=== PATIENT | female | born 1970 | race Caucasian/White ===

== ENCOUNTER 2018-01-23 21:15 | Emergency (ER) | payer SELFPAY ==
[2018-01-23] MEDS ORDERED: Diphtheria,Pertussis(Acell),Tetanus Vaccine 0.5 ML Syringe IM ONE (21:33)
--- NOTE | 2018-01-23 21:33 | EDM.PDOC ---
ED HPI GENERAL MEDICAL PROBLEM - General Chief Complaint: General Stated Complaint: PT HAS OBJECT IN RT FOOT Time Seen by Provider: 01/23/18 21:30 Source of Information: Reports: Patient History Limitations: Reports: No Limitations - History of Present Illness INITIAL COMMENTS - FREE TEXT/NARRATIVE: HISTORY AND PHYSICAL: []47-year-old female presents with a foreign object stuck in her foot History of Present Illness: []Patient has her sock calf waist down there is a toothpick into her foot She does not recall when her last tetanus vaccine was given Review of Systems: As per history of present illness and below otherwise all systems reviewed and negative. Past medical history: As per history of present illness and as reviewed below otherwise noncontributory. Surgical history: As per history of present illness and as reviewed below otherwise noncontributory. Social history: No reported history of drug or alcohol abuse. Family history: As per history of present illness and as reviewed below otherwise noncontributory. Physical exam: Alert female answering questions appropriately in full sentences without any shortness of breath she is nontoxic in appearance HEENT: Atraumatic, normocehpalic, pupils reactive, negative for conjunctival pallor or scleral icterus, mucous membranes moist, throat clear, neck supple, nontender, trachea midline. Lungs: Clear to auscultation, breath sounds equal bilaterally, chest non tender. Heart: S1S2, regular, negative for clicks, rubs, or JVD. Abdomen: Soft, nondistended, nontender. Negative for masses or hepatossplenmegaly. Negative for costovertebral tenderness. Pelvis: Stable nontender. Genitourinary: Deferred. Rectal: Deferred Extremities: Toothpick is through her sock and into the sole of her, negative for cords or calf pain. Neurovascular unremarkable. Neuro: Awake, alert, oriented. Cranial nerves II through XII unremarkable. Cerebellum unremarkable. Motor and sensory unremarkable throughout. Exam nonfocal. Toothpick was removed. Proximally 1 inch was into her foot, toothpick intact when removed. Diagnostics: [] Therapeutics: []Adacel Impression: []Puncture wound right foot Plan: []Discharged home Follow up with your primary care provider in 3 days Keflex 500 mg 3 times a day 5 days Hot soapy soaks Epson salt water twice daily Return to the emergency department as directed and discussed Definitive disposition and diagnosis as appropriate pending reevaluation and review of above. Onset: Today, Sudden Duration: Minutes: (20) Location: Reports: Lower Extremity, Right Quality: Reports: Stabbing Severity: Moderate Improves with: Reports: None Worsens with: Reports: None Associated Symptoms: Reports: No Other Symptoms - Related Data Allergies Allergy/AdvReac Type Severity Reaction Status Date / Time No Known Allergies Allergy Verified 01/23/18 21:32 Home Meds: Home Meds Cephalexin [Keflex] 500 mg PO TID #15 capsule 01/23/18 [Rx] ED ROS GENERAL - Review of Systems Review Of Systems: ROS reveals no pertinent complaints other than HPI. ED EXAM, GENERAL - Physical Exam Exam: See Below (see dictation) Course - Vital Signs Last Recorded V/S: Last Vital Signs Temp 36.6 C 01/23/18 21:27 Pulse 99 01/23/18 21:27 Resp 20 01/23/18 21:27 BP 169/90 H 01/23/18 21:27 Pulse Ox 98 01/23/18 21:27 - Orders/Labs/Meds Orders: Active Orders 24 hr Category Date Time Status Vaccines to be Administered [RC] PER UNIT ROUTINE Care 01/23/18 21:33 Ordered Diphth,Pertuss(Acell),Tet Vac [Adacel] Med 01/23/18 21:33 Once 0.5 ml IM .ONCE ONE Departure - Departure Time of Disposition: 21:34 Disposition: Home, Self-Care 01 Condition: Good Clinical Impression: Puncture wound of right foot Qualifiers: Encounter type: initial encounter Qualified Code(s): S91.331A - Puncture wound without foreign body, right foot, initial encounter - Discharge Information *PRESCRIPTION DRUG MONITORING PROGRAM REVIEWED*: Not Applicable *COPY OF PRESCRIPTION DRUG MONITORING REPORT IN PATIENT [place]: Not Applicable Prescriptions: Cephalexin [Keflex] 500 mg PO TID #15 capsule Instructions: Puncture Wound, [place] Forms: ED Department Discharge Additional Instructions: The following information is given to patients seen in the emergency department who are being discharged to home. This information is to outline your options for follow-up care. We provide all patients seen in our emergency department with a follow-up referral. The need for follow-up, as well as the timing and circumstances, are variable depending upon the specifics of your emergency department visit. If you don't have a primary care physician on staff, we will provide you with a referral. We always advise you to contact your personal physician following an emergency department visit to inform them of the circumstance of the visit and for follow-up with them and/or the need for any referrals to a consulting specialist. The emergency department will also refer you to a specialist when appropriate. This referral assures that you have the opportunity for followup care with a specialist. All of these measure are taken in an effort to provide you with optimal care, which includes your followup. Under all circumstances we always encourage you to contact your private physician who remains a resource for coordinating your care. When calling for followup care, please make the office aware that this follow-up is from your recent emergency room visit. If for any reason you are refused follow-up, please contact the [facility] emergency department at and asked to speak to the emergency department charge nurse. Discharged home Follow up with your primary care provider in 3 days Keflex 500 mg 3 times a day 5 days Hot soapy soaks Epson salt water twice daily Return to the emergency department as directed and discussed - My Orders Last 24 Hours: My Active Orders 01/23/18 21:33 Vaccines to be Administered [RC] PER UNIT ROUTINE Diphth,Pertuss(Acell),Tet Vac [Adacel] 0.5 ml IM .ONCE ONE - Assessment/Plan Last 24 Hours: My Active Orders 01/23/18 21:33 Vaccines to be Administered [RC] PER UNIT ROUTINE Diphth,Pertuss(Acell),Tet Vac [Adacel] 0.5 ml IM .ONCE ONE
== END 2018-01-23 21:44 | disposition home or self-care (01) ==
LOC: MW.ED 21:15
DX: S91.341A Puncture wound with foreign body, right foot, initial encounter (principal); Z23 Encounter for immunization; W45.8XXA Other foreign body or object entering through skin, initial encounter
CPT/HCPCS: 90471; 90715; 99282; 99283-25

== ENCOUNTER 2018-11-25 19:59 | Observation (INO) | payer SELFPAY ==
[2018-11-25] MEDS ORDERED: Aspirin 81 MG Tab.Chew PO ONE (20:00)
[2018-11-25] MEDS ORDERED: Sodium Chloride 0.9% 1,000 ML IV SCH (20:00)
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
[2018-11-25] MEDS: Nitroglycerin 0.4 MG Tab.SL SL PRN ×3 (20:06→20:16)
[2018-11-25] MEDS ORDERED: Metoprolol Tartrate 5 MG/5 ML SDV IVPUSH STA (20:24)
[2018-11-25] MEDS ORDERED: Morphine 2 MG/ML Syringe IVPUSH ONE (20:24)
--- NOTE | 2018-11-25 20:38 | CR ---
HISTORY: Chest pain. Shortness of breath. Numbness and tingling in the extremities. Lightheadedness and dizziness. COMPARISON: None available FINDINGS: A portable erect AP view of the chest was obtained at 2026 hours. The lungs are clear. No focal or diffuse infiltrates are present. The heart is normal in size. The mediastinum is normal in appearance. The osseous structures are normal in appearance for the patient`s age. IMPRESSION: Normal portable chest single view. Dictated by Ayaan Villalobos MD @ Nov 25 2018 8:36PM Signed by Dr. Ayaan Villalobos @ Nov 25 2018 8:36PM
[2018-11-25 20:43] LABS: CHLORIDE,CL 101 mmol/L (98-107); SODIUM,NA 136 mmol/L (136-145)
[2018-11-25] MEDS ORDERED: Acetaminophen 325 MG Tab PO PRN (21:36)
[2018-11-25] MEDS ORDERED: oxyCODONE 5 MG Tab PO PRN (21:36)
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
[2018-11-26] MEDS ORDERED: Nitroglycerin 0.4 MG Tab.SL ONE (04:22)
== END 2018-11-26 04:45 ==
LOC: MW.ED 19:59 → MW.MS 21:26
PROVIDERS: ADMIT Internal Medicine; ATTEND Internal Medicine
DX: I21.4 Non-ST elevation (NSTEMI) myocardial infarction (principal); I24.9 Acute ischemic heart disease, unspecified; I25.2 Old myocardial infarction; F17.200 Nicotine dependence, unspecified, uncomplicated; Z95.5 Presence of coronary angioplasty implant and graft
CPT/HCPCS: 36415; 71045; 71045-26; 80053; 83690; 84484; 85025; 85379; 85610; 93005; 96361; 96374; 96375; 99284; 99285-25; A9270-GY; G0378; J2270; J3490; J7040